=== PATIENT | female | born 1950 | race Caucasian/White ===

== ENCOUNTER 2021-03-21 14:52 | Outpatient (CLI) | payer MEDICARE, SELFPAY ==
--- NOTE | ~2021-03-21 | DEXA_ITS ---
Bone Density Report Name: Malu López Age: 71 Sex: Female Ethnicity: White Date of : 1950 Indication: postmenopausal; height loss; Referring Provider: Rommel Christiansen Study: Bone densitometry was performed. Exam Date: March 21, 2021 Accession number: [id number] Bone Density: Region BMD T-score Z-score Classification AP Spine (L1-L4) 0.978 -0.6 1.6 Normal Femoral Neck (Left) 0.784 -0.6 1.3 Normal Total Hip (Left) 0.860 -0.7 0.9 Normal Total Hip Bilateral Avg 0.824 -1.0 0.6 Osteopenia Femoral Neck (Right) 0.783 -0.6 1.3 Normal Total Hip (Right) 0.786 -1.3 0.3 Osteopenia World Health Organization criteria for BMD impression classify patients as: Normal (T-score at or above -1.0), Osteopenia (T-score between -1.0 and -2.5), or Osteoporosis (T-score at or below -2.5). 10-year Fracture Risk(1): Major Osteoporotic Fracture 8.2% Hip Fracture 0.7% Reported Risk Factors: [place] (), Neck BMD=0.783, BMI=24.3 (1) FRAX(R) Version 3.08. Fracture probability calculated for an untreated patient. Fracture probability may be lower if the patient has received treatment. Previous Exams: Region Exam Age BMD T-score BMD Change BMD Change Date g/cm2 vs Baseline vs Previous AP Spine(L1-L4) 03/21/2021 71 0.978 -0.6 -0.043(-4.2%)# -0.050(-4.9%)* 12/03/2016 66 1.029 -0.2 0.007(0.7%)# 0.016(1.6%)# 10/23/2013 63 1.012 -0.3 -0.009(-0.9%)# -0.009(-0.9%)# 04/05/2004 54 1.022 -0.2 Total Hip(Left) 03/21/2021 71 0.860 -0.7 -0.148(-14.6%) -0.111(-11.4%) 12/03/2016 66 0.972 0.2 -0.037(-3.6%)# 0.136(16.3%)# 10/23/2013 63 0.836 -0.9 -0.172(-17.1%) -0.172(-17.1%) 04/05/2004 54 1.008 0.5 Total Hip(Right) 03/21/2021 71 0.786 -1.3 -0.212(-21.2%) -0.144(-15.5%) 12/03/2016 66 0.930 -0.1 -0.067(-6.8%)# 0.069(8.1%)# 10/23/2013 63 0.861 -0.7 -0.137(-13.7%) -0.137(-13.7%) 04/05/2004 54 0.998 0.5 *Denotes significance at 95% confidence level, LSC for AP Spine = 0.022 g/cm2, LSC for Total Hip = 0.027 g/cm2 Clinical Information Provided by Patient: Has used the following medications: Vitamin D, Calcium Patient maximum height was 65 Menopause Age: 50 No regular weight bearing exercise Drinks caffeinated beverages Onset of menses at age 13 Number of children 1 Impression: The patient has low bone mass, based on the Right Total Hip T-score. The patient has an estimated ten-year ris
--- NOTE | ~2021-03-21 | MM_ITS ---
EXAMINATION: MM screening onofre BI w javier HISTORY: Screening mammogram TECHNIQUE: Craniocaudal and mediolateral oblique 3-D tomosynthesis images were obtained and synthetic 2-D images were generated. CAD analysis was submitted and interpreted. COMPARISON: 03/03/2019 diagnostic left mammogram and limited left breast ultrasound 02/26/2019, 12/03/2016, 08/02/2015 bilateral digital screening mammogram examinations BREAST PARENCHYMAL COMPOSITION: There are scattered areas of fibroglandular density. FINDINGS: There is a biopsy marker on the right; history of prior benign right breast biopsy. There i s no evidence of suspicious mass, calcification, or architectural distortion to suggest malignancy in either breast. There has been no suspicious interval change. IMPRESSION: 1. No mammographic evidence of malignancy. 2. Recommend routine screening mammography in one year. BI-RADS Category 1: Negative Reviewed, dictated and finalized at location A.
== END 2021-03-21 14:53 | disposition home or self-care (01) ==
PROVIDERS: PCP Family Medicine; Visit Provider Family Medicine
DX: Z12.31 Encounter for screening mammogram for malignant neoplasm of breast (principal); Z78.0 Asymptomatic menopausal state; M85.851 Other specified disorders of bone density and structure, right thigh
CPT/HCPCS: 77063; 77067; 77080

== ENCOUNTER → 2021-08-15 09:23 | Outpatient (CLI) | payer MEDICARE, SELFPAY ==
--- NOTE | ~2021-08-15 | XR_ITS ---
EXAMINATION: XR ribs BI 3V w CXR 2V DATE: 08/15/2021 09:40 INDICATION: Right chest pain. Other specified disorders of bone, other site. TECHNIQUE: Frontal and lateral views of the chest and 2 views on 3 radiographs of the right ribs and 2 views on 3 radiographs of the left ribs were obtained. COMPARISON: Chest 2 views 10/08/2012 FINDINGS: CHEST TWO VIEWS: There is a large hiatal hernia. There is mild scarring at lung apex. No pleural effu adolfo or pneumothorax. The heart size is normal. BILATERAL RIBS: There is no rib fracture. IMPRESSION: 1. No rib fracture. 2. Large hiatal hernia. Reviewed, dictated and finalized at location A.
== END ==
PROVIDERS: PCP Family Medicine; Visit Provider Physician Assistant
DX: M89.8X8 Other specified disorders of bone, other site (principal); K44.9 Diaphragmatic hernia without obstruction or gangrene
CPT/HCPCS: 71046; 71110

== ENCOUNTER → 2021-08-25 08:26 | Outpatient (CLI) | payer MEDICARE, SELFPAY ==
--- NOTE | ~2021-08-25 | CT_ITS ---
EXAMINATION: CT chest high resolution [facility] DATE: 08/25/2021 08:45 INDICATION: Palpable mass of the chest TECHNIQUE: Computed tomography (CT) of the chest was performed without intravenous contrast. The dose -length product (DLP) was 171.06 mGy-cm. Automated exposure control and iterative reconstruction tech [employer] were employed. COMPARISON: None FINDINGS: There is a BB marker on the skin of the right upper chest wall near the medial clavicle. No underlying mass or other abnormality is identified at the site marked by the BB. Small scattered pul monary nodules measure up to 2 mm. There is a 6 mm groundglass nodule without solid component in the right lower lobe on image 81. There is a large sliding hiatal hernia. No pathologically enlarged thor acic lymph nodes are identified. The heart size is normal. The lungs are free of acute airspace opaci ties. There is no pleural effusion or pneumothorax. There is severe thoracic spondylosis. IMPRESSION: 1. No specific abnormality identified in the area of clinical interest. 2. Solid and subsolid nodules of the lungs measuring up to 6 mm. Follow-up CT in 6-12 months is recom mended. Reviewed, dictated and finalized at location B. IMPRESSION: 1. No specific abnormality identified in the area of clinical interest. 2. Solid and subsolid nodules of the lungs measuring up to 6 mm. Follow-up CT i n 6-12 months is recommended.
== END ==
PROVIDERS: Visit Provider Physician Assistant
DX: M89.8X8 Other specified disorders of bone, other site (principal); R91.8 Other nonspecific abnormal finding of lung field
CPT/HCPCS: 71250

== ENCOUNTER 2024-02-14 10:05 | Emergency (ER) | payer MEDICARE, SELFPAY ==
--- NOTE | 2024-02-14 10:08 | ED.URI ---
HPI - URI/Sore Throat General Chief Complaint: Upper Respiratory Infection Stated Complaint: HEADACHE/FEVER/NAUSEA Time Seen by Provider: 02/14/24 10:20 Source: patient Mode of arrival: ambulatory Limitations: no limitations History of Present Illness HPI Narrative: Manuela is a 74-year-old female patient presenting to the clinic today with complaints of headache over the forehead and temporal lobes, fever, and nausea. She reports that the symptoms have been going on for the past 3 days. Has been taking Tylenol and aspirin for pain. Reports that she does have some nausea. Denies any visual changes, dizziness, visual changes, unsteady gait, neck stiffness, shortness of breath or chest pain Related Data Home Medications Medication Instructions Recorded Confirmed acetaminophen 650 mg 650 mg PO Q12H PRN 01/04/20 12/26/23 tablet,extended release ascorbate calcium (vitamin C) 500 500 mg PO DAILY 01/04/20 12/26/23 mg tablet aspirin 81 mg tablet,delayed 81 mg PO DAILY 01/04/20 12/26/23 release (Adult Aspirin Regimen) cholecalciferol (vitamin D3) 125 125 mcg PO DAILY 01/04/20 12/26/23 mcg (5,000 unit) capsule mecobalamin (vitamin B12) 1,000 1,000 mcg PO DAILY 01/04/20 12/26/23 mcg chewable tablet Allergies Allergy/AdvReac Type Severity Reaction Status Date / Time No Known Allergies Allergy Unknown Verified 02/14/24 10:25 Review of Systems Review of Systems: Pertinent positives per HPI. Patient denies any fever, chills, rash, visual changes, dizziness, shortness of breath, chest pain, palpitations, nausea, vomiting, diarrhea, constipation, abdominal pain, or any urinary issues. 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 Family History Family History Father Hypertension, Onset Age: 70 Acute myocardial infarction, Onset Age: 70 Mother Hypertension, Onset Age: 92 Family history of cardiovascular disease, Onset Age: 92 Cerebrovascular accident, Onset Age: 92 Family history of congestive heart failure, Onset Age: 92 Grandparent Family history of malignant neoplasm of breast Social History Social History Social History: Caffeine-tea/soda Smoking status: Never smoker Alcohol intake: current Alcohol use details: rarely Substance use: never Substance use type: does not use Do You Feel Safe in your Home?: Yes Lack of Transportation: No Lack of Food: Sometimes True Current Housing: Decline to Answer Concerned About Future Housing: Decline to Answer Difficulty Paying Gas/Electric Bills: Decline to Answer Difficulty Paying for Meds: Decline to Answer Currently Unemployed: Decline to Answer Education: Master's Degree or Higher Difficulty w/ Childcare or Family Care: Decline to Answer Living arrangements: with family Comments At the time of my signature, I reviewed and agree with the nursing past medical, surgical, social, and family history. There is no relevant family history pertinent to the patient complaint. Exam Narrative: General: Well-developed, well nourished, in no apparent distress Head: Normocephalic, atraumatic Eyes: Pupils equally round and reactive to light bilaterally, EOM intact, sclera and conjunctive clear, no discharge, lids normal Ears: TMs intact and clear, ear canals clear, no drainage, grossly hearing normal. Nose: Nares patent, clear nasal discharge, no inflammation, no sinus tenderness. Mouth: Oral pharynx red without lesions or masses, good dentition, MMM. Neck: Supple, trac
[2024-02-14 10:17] VITALS: BP 131/81; PULSE 89; RESP 16; TEMP 36.5; O2SAT 99
[2024-02-14 10:45] LABS: EDCOVIDSCREEN Negative (Negative)
[2024-02-14 10:47] LABS: EDSTREPNEGPOS1 Negative (Negative)
== END 2024-02-14 10:52 | disposition home or self-care (01) ==
PROVIDERS: Emergency Provider Nurse Practitioner Family; PCP Family Medicine
DX: B34.9 Viral infection, unspecified (principal); R11.0 Nausea; G44.209 Tension-type headache, unspecified, not intractable; Z20.822 Contact with and (suspected) exposure to COVID-19; I10 Essential (primary) hypertension; E78.2 Mixed hyperlipidemia; Z85.828 Personal history of other malignant neoplasm of skin; Z79.82 Long term (current) use of aspirin
CPT/HCPCS: 87081; 87635; 87880; 99213; G0463

== ENCOUNTER 2024-03-03 15:06 | Outpatient (CLI) | payer MEDICARE, SELFPAY ==
--- NOTE | ~2024-03-03 | MM_ITS ---
EXAMINATION: MM screening onofre BI w javier HISTORY: Screening TECHNIQUE: Craniocaudal and mediolateral oblique 3-D tomosynthesis images were obtained and synthetic 2-D images were generated. CAD analysis was submitted and interpreted. COMPARISON: Comparison to multiple prior studies sequentially, with oldest reviewed study dated 06/2015. BREAST PARENCHYMAL COMPOSITION: Not dense: There are scattered areas of fibroglandular density. FINDINGS: There is developing asymmetry in the upper outer quadrant of the right breast the left tabitha st is stable without evidence for malignancy. IMPRESSION: 1. Developing right breast asymmetry in the upper outer quadrant anteriorly. 2. Additional mammographic views and possible breast ultrasound are recommended. BI-RADS Category 0: Incomplete: Needs additional imaging evaluation. Reviewed, dictated and finalized at location B. IMPRESSION: 1. Developing right breast asymmetry in the upper outer quadrant anteriorly. 2. Additional mammographic views and possible breast ultrasound are recommended . BI-RADS Category 0: Incomplete: Needs additional imaging evaluation.
== END 2024-03-03 15:07 | disposition home or self-care (01) ==
PROVIDERS: PCP Family Medicine; Visit Provider Family Medicine
DX: Z12.31 Encounter for screening mammogram for malignant neoplasm of breast (principal); R92.8 Other abnormal and inconclusive findings on diagnostic imaging of breast
CPT/HCPCS: 77063; 77067

== ENCOUNTER 2024-04-17 09:24 | Outpatient (CLI) | payer MEDICARE, SELFPAY ==
--- NOTE | ~2024-04-17 | MM_ITS ---
EXAMINATION: MM diagnostic onofre RT w javier HISTORY: Right breast asymmetry TECHNIQUE: Additional 3-D tomosynthesis images of the right breast were performed and synthetic 2-D i mages were generated. CAD analysis was submitted and interpreted. COMPARISON: 03/03/2024, 03/21/2021, 02/26/2019 BREAST PARENCHYMAL COMPOSITION:Not Dense. There are scattered areas of fibroglandular density. FINDINGS: The right breast asymmetry effaces with spot compression. No persistent mass lesion or dist ortion seen. No suspicious macrocalcification. IMPRESSION: No mammographic evidence for malignancy. BI-RADS Category 1: Negative Reviewed, dictated and finalized at location . [employer]
== END 2024-04-17 09:25 | disposition home or self-care (01) ==
LOC: MICIMG 09:24
PROVIDERS: PCP Family Medicine; Visit Provider Family Medicine
DX: R92.8 Other abnormal and inconclusive findings on diagnostic imaging of breast (principal)
CPT/HCPCS: 77061; 77065; G0279

== ENCOUNTER 2025-04-19 13:11 | Outpatient (CLI) | payer MEDICARE, SELFPAY ==
--- NOTE | 2025-04-19 | ECHO_ITS ---
Patient Info Name: Malu López Age: 75 years : 1950 Gender: Female Ht: 62 in Wt: 130 lbs BSA: 1.62 m2 HR: 84 bpm BP: 155 / 84 mmHg Technical Quality: Good Exam Date: 04/19/2025 1:32 PM Patient Status: O Admit Date: 04/19/2025 Exam Type: CA echo doppler color flow Complete two-dimensional, color flow and Doppler transthoracic echocardiogram is performed. [employer]inery Operator [employer]: Fabricio Mccoy III Summary 1. Complete two-dimensional, color flow and Doppler transthoracic echocardiogram is performed. 2. There is normal biventricular size and systolic function. 3. There are no significant valvular abnormalities. 4. The left atrium is mildly dilated. Left Ventricle The left ventricle is normal in size and systolic function. The left ventricular ejection fraction is visually estimated to be 65-70%. There are no regional wall motion abnormalities. Right Ventricle The right ventricle is normal in size and systolic function. Left Atria The left atrium is mildly dilated. Right Atria The right atrium is normal size. Atrial Septum The atrial septum is visually intact. Aortic Valve The aortic valve is trileaflet and opens well. There is trace aortic regurgitation. Pulmonic Valve The pulmonic valve is grossly normal. There is trace pulmonic valve regurgitation. Mitral Valve The mitral valve is normal. There is no mitral regurgitation. Tricuspid Valve The tricuspid valve is normal. There is trace tricuspid regurgitation. Pericardium/Pleural Pericardium is normal in appearance with no evidence for significant pericardial effusion. Inferior Vena Cava Normal inferior vena cava with >50% collapse upon inspiration consistent with normal right atrial pressure, 3 mmHg. Aorta The aortic root at the level of the sinus of Valsalva measures 2.9 cm in diameter. Left Ventricular Outflow Tract Name Value Normal LVOT 2D LVOT Diameter 2.0 cm LVOT Doppler LVOT Peak Velocity 136 cm/s LVOT Peak Gradient 7 mmHg LVOT Mean Gradient 4 mmHg LVOT VTI 29 cm LVOT VTI/AV VTI Ratio 0.9 LVOT Stroke Volume 89 ml LVOT CO 6.9 l/min LVOT CI 4.3 l/min/m2 Pulmonic Valve Name Value Normal PV Doppler PV Peak Velocity 94 cm/s PV Peak Gradient 4 mmHg PV Mean Gradient 2 mmHg Mitral Valve Name Value Normal MV Doppler MV Peak Gradient 5 mmHg MV Mean Gradient 2 mmHg MV Area (Cont Eq VTI) 3.7 cm2 MV Diastolic Function MV E Peak Velocity 115 cm/s MV A Peak Velocity 45 cm/s MV E/A 2.5 MV Decel Time (PW) 183 ms MV Annular TDI MV E/e' (Septal) 17.5 MV E/e' (Lateral) 12.8 MV E/e' (Average) 15.2 Tricuspid Valve Name Value Normal Estimated PAP/RSVP RA Pressure 3 mmHg <=5 TV Annular TDI TV Lateral Tricia s' Velocity 16.9 cm/s >=9.5 Aortic Valve Name Value Normal AV Doppler AV Peak Velocity 165 cm/s AV Peak Gradient 11 mmHg AV Mean Gradient 5 mmHg AV VTI 31 cm AV Area (Cont Eq VTI) 2.9 cm2 >=3.0 AV Area (Cont Eq Edgar) 2.5 cm2 AV DI (Edgar) 0.82 AV Regurgitation 2D LVOT Area 3.1 cm2 Ventricles Name Value Normal LV Dimensions 2D/MM IVS Diastolic Thickness (2D) 0.9 cm 0.6-1.0 LVID Diastole (2D) 4.0 cm 3.8-5.2 LVIW Diastolic Thickness (2D) 1.0 cm 0.6-0.9 LVID Systole (2D) 2.5 cm 2.2-3.5 LVOT Diameter 2.0 cm LV Mass (2D Cubed) 123.20 g 67.00-162.00 LV Mass Index (2D Cubed) 76 g/m2 43-95 Relative Wall Thickness (2D) 0.53 <=0.42 LV Fractional Shortening/Ejection Fraction 2D/MM LV Fractional Shortening (2D) 38 % 27-45 LV EF (2D Teichholz) 68 % LV Diastolic Volume (4C MOD) 57 ml LV EF (4C MOD) 62 % LV Diastolic Volume (2C MOD) 53 ml LV EF (2C MOD) 65 % LV Diastolic Volume (BP MOD) 58 ml 46-106 LV Diastolic Volume Index (BP MOD) 36 ml/m2 29-61 LV Systolic Volume (BP MOD) 18 ml 14-42 LV Systolic Volume Index (BP MOD) 11 ml/m2 8-24 LV EF (BP MOD) 68 % 54-74 LV Diastolic Length (4C) 6.5 cm LV Systolic Length (4C) 5.6 cm LV Stroke Volume (4C MOD) 35 ml Atria Name Value Normal LA Dimensions LA Volume (4C A-L) 33 ml LA Volume (BP A-L) 55 ml RA Dimensions RA Systolic Major Aneta Length (4C) 4.2 cm 2.2-2.8 RA Area (4C) 10.8 cm2 <=18.0 Report Signatures
== END 2025-04-19 13:12 | disposition home or self-care (01) ==
PROVIDERS: PCP Family Medicine
DX: I51.7 Cardiomegaly (principal); I48.91 Unspecified atrial fibrillation; I10 Essential (primary) hypertension
CPT/HCPCS: 93306